=== PATIENT | female | born 1945 | race Caucasian/White ===

== ENCOUNTER → 2024-02-16 | Outpatient (CLI) | payer OTHER, SELFPAY ==
--- NOTE | 2024-02-16 12:30 | XR_ITS ---
Examination: Thyroid sonography complete TECHNIQUE: Multiple high resolution grayscale sonographic images thyroid lobes are carful analysis Exam date and time: February 16, 2024 1307 hours INDICATIONS: Graves' disease diagnosis 20 years ago FINDINGS: Right thyroid 5.7 x 1.5 x 1.9 cm Multiple thyroid nodules, the largest in the mid lobe 9 x 6 x 6 mm lower lobe 3.4 x 1.4 x 2.5 cm Isthmus nodule 13 x 6 x 13 mm Left thyroid 7.7 x 2.8 x 4.3 cm Midpole vascular nodule with heterogeneous echogenicity 4.7 x 2.4 x 3.7 cm IMPRESSION: Thyromegaly Multiple thyroid nodules as above Recommend ultrasound-guided fine-needle aspiration of the large inferior nodule right thyroid lobe and large mid to lower pole nodule left thyroid lobe
== END | disposition home or self-care (01) ==
PROVIDERS: PCP Physician Assistant; Referring Provider Nurse Practitioner Family; Visit Provider Nurse Practitioner Family
DX: E01.0 Iodine-deficiency related diffuse (endemic) goiter (principal); C44.329 Squamous cell carcinoma of skin of other parts of face; C50.912 Malignant neoplasm of unspecified site of left female breast; C50.411 Malignant neoplasm of upper-outer quadrant of right female breast
CPT/HCPCS: 76536

== ENCOUNTER 2024-02-22 13:22 | Outpatient (RCR) | payer OTHER, SELFPAY ==
--- NOTE | 2024-02-23 06:41 | CTCFLWUP_ITS ---
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 Left breast cancer (1997) Uterine cancer (2015) REASON FOR TODAY?S VISIT: Follow-up for routine HISTORY OF PRESENT ILLNESS: Ms. West is here at [facility]. Patient is accompanied by daughter. MRI of orbits face neck with and without contrast showed no abnormal enha ncing right or left orbital mass, 12/25/2023. MRI was ordered due to PET/CT recommendation from 2023. Labs from 12/11/2023 show TSH 1.21, T40.87, thyroglobulin 246.9. Patient currently taking methi mazole for Graves' disease. Patient reports feeling well overall. Patient denies any concerns or co mplaints. Denies dysphagia. Patient denies cough, denies chest pain, denies any pain in the right eye socket. Denies any abdominal pain or leg cramps. Has good appetite and good energy levels. Denies any weight loss. Denies any fevers or night sweats. Patient ambulating without assistance. ONCOLOGICAL HISTORY: Gemma West is a 78-year-old ENG speaking female with following oncolo gy history. 1997: Patient had left breast cancer. She had lumpectomy followed by radiation therapy. She was jessica ated with 5 years of tamoxifen at [facility] in [place]. Treated with adjuvant tamoxifen for 5 year s. 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 2016: Patient developed uterine cancer. She had hysterectomy followed by radiation therapy in [place]. 2018: Patient developed squamous cell carcinoma of the right lateral orbital region which was resecte d by Dr. Nathan in [place]. 2019: Patient had another surgery for recurrence of the squamous cell carcinoma of the right lateral orbital region by Dr. Darby of [place]. 07/29/2019: Patient had local recurrence in the right orbit. She had right lateral orbitotomy with rem oval of the squamous cell recurrence. Right conjunctival tumor excision with map biopsies. Harvested labial mucosal mercedes t. Right ocular surface reconstruction, conjunctivoplasty, buccal graft. Right temporal tarsorrhaphy with bandage co ntact lens. Surgical pathology specimen showed the following. According to . Brett Dr. Darby did not recommend any radiation therapy to the right lateral orb it. 08/17/2019: Patient was seen by radiation oncologist Dr. Crenshaw here at the [facility]. 10/18/2019: PET CT scan? 11/11/2019: Ultrasound of soft tissue of the face and neck? 11/11/2019: Right breast ultrasound? 11/14/2019: CT scan of the chest without contrast? 12/01/2019: CT-guided biopsy of the right lung? 12/06/2019: Ultrasound-guided biopsy of the right breast? 12/29/2019: Ultrasound-guided biopsy of the left thyroid nodule? 02/09/2020: MRI of the orbits face and neck with and without contrast? 03/05/2020: Right breast lumpectomy and sentinel node biopsy? 03/09/2020: Repeat surgery for positive margins? 04/26/2020: 06/04/2020?08/06/2020: Patient received 4 cycles of TC chemotherapy in the adjuvant setting. 08/30/2020: Patient is started on tamoxifen 20 mg p.o. daily. Bone density test is requested. 09/26/2020 - 11/14/2020: Patient received 6300 cGy radiation therapy to the right breast. 04/03/2021: MRI brain without contrast 05/21/2021: CT scan of the chest without contrast 07/18/2021: CT-guided biopsy of the left upper lobe lung lesion? 05/21/2023: Bilateral breast mammogram screening 08/18/2023: Bilateral breast ultrasound 08/25/2023: CT chest without contrast 08/31/2023: MRI brain with contrast 10/15/2023: PET/CT IMPRESSION: Recommend MRI soft tissue neck pre and post contrast follow-up to assess weakly hypermetabolic soft tissue posterior to the right hyoid bone and in hypermetabolic area at or near the right thyroid lobe, 15 mm The high-resolution CT chest without contrast August 25, 2023 better demonstrates metastatic pulmonary nodules, including a 18 mm nodule spiculated margins left upper lobe 12/11/2023: TSH 1.21, T40.87, thyroglobulin 246.9 12/25/2023: MRI orbits face neck with and without contrast-no abnormal enhancing right or left orbital mass PAST MEDICAL HISTORY: Left breast cancer - 1997 Dudley cell right face - 2013 Uterine - 2014 Squamous cell carcinoma right eye - 2013 HTN High Cholesterol Hyperthyroid PAST SURGICAL HISTORY: Left breast lumpectomy - 1997 Right eye surgery - Hysterectomy -2014 MEDICATIONS: methIMAzole hydrochlorothiazide citalopram Citracal plus D [calcium citrate/cholecalciferol (vitamin d3)] tamoxifen gabapentin Medications last reconciled on 01/07/2024 ALLERGIES: amoxicillin REVIEW OF SYSTEMS Neurological: No headache, seizures or blurring of vision. Gastrointestinal: No nausea, vomiting, diarrhea or constipation. Cardiovascular: No palpitations or angina pains. Respiratory: No cough, chest pain or shortness of breath. VITAL SIGNS: Date Time PHYSICAL EXAMINATION: No signs of recurrence of malignancy in the right orbital area. Oral cavity: No Lesions. Neck: Supple, no adenopathy. Chest is clear to auscultation. No wheezes or rales audible. CVS: Rhythm regular, no murmurs. Abdomen is soft. No hepatosplenomegaly. Extremities: No pedal edema. No cyanosis. LABORATORY DATA: ASSESSMENT AND PLAN: #1. 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 MRI head brain with contrast, shows no abnormal lesions, (08/31/2023). MRI of orbits face and neck with and without contrast showed no abnormal enhancing right or left orbi renee mass, 12/25/2023. Advised to continue follow-up with his Mohs surgeon #2. 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 S/p 4 cycles adjuvant TC chemotherapy and adjuvant r adiation therapy. Oncotype DX recurrence score 29 with a distant recurrence risk at 9 years of 18%. The absolute chemo therapy benefit is more than 15%. Bilateral breast mammogram, (05/21/2023), benign, recommending baseline bilateral breast ultrasound. Baseline bilateral breast ultrasound, negative study, (08/18/2023). Continue tamoxifen, started (08/30/2020-August 2024) #3. History of uterine cancer (2015) Status post hysterectomy followed by radiation therapy. No clinical evidence of recurrence. #4. Hyperthyroidism Left thyroid nodule biopsy benign, 01/05/2020. Taking methimazole for Graves' disease, will bring medication bottle to next visit, does not remember dosage, managed by PCP, Dr. June. Labs from 12/11/2023 TSH 1.21 T40.87, thyroglobulin antibody <1, thyroglobulin 246.9. Ultrasound of neck. TSH T4 thyroglobulin and thyroglobulin antibody prior to next follow-up appointment. #5. Pulmonary nodules. CT scan of chest without contrast 08/25/2023 showed multiple additional pulmonary nodules, 6-month foll ow-up CT chest without contrast recommended. Has an existing order for 12/2023. CT scan of chest without contrast (07/24/2022) showed stable pulmonary nodules, no new pulmonary nodule s. CT-guided biopsy of the left upper lobe lung lesion is negative for malignancy (07/18/2021). #6. Osteopenia, 06/09/2022. Continue Citracal twice a day. #7 Left breast cancer (1997) no evidence of recurrence Return to clinic in 1 month for follow up visit, to review US results, CT results and lab results. Electronically signed by Dr Tao electronically Signed by: {Object.Sanct_ID*PnP.NameFL}, {Object.Sanct_ID*PnP.Suffix} on {Object.Sanct _Date} at {Object.Sanct_Time} Electronically Signed by: {Object.Sanct_ID2*PnP.NameFL}, {Object.Sanct_ID2*PnP.Suffix} on {Object.Santiago ct_Date2@d01b} at {Object.Sanct_Time2@t3b} cc: Alejandro June, Referring: Reno Moya This document was completed utilizing speech recognition software. Grammatical errors, random word in sertions, pronoun errors, and incomplete sentences are an occasional consequence of this system due t o software limitations, ambient noise, and hardware issues. Any formal questions or concerns about th e content, text or information contained within the body of this dictation should be directly address ed to the provider for clarification. Patient: GEMMA WEST : 1945 MR#: [id number] FOLLOW UP NOTE Page 17 of 17
== END 2024-03-22 23:59 | disposition home or self-care (01) ==
LOC: SCTC 13:22
PROVIDERS: PCP Family Medicine; Referring Provider Family Medicine; Visit Provider Internal Medicine Hematology & Oncology
DX: C50.411 Malignant neoplasm of upper-outer quadrant of right female breast (principal); C44.329 Squamous cell carcinoma of skin of other parts of face; Z17.0 Estrogen receptor positive status [ER+]; Z17.21 Progesterone receptor positive status; Z17.32 Human epidermal growth factor receptor 2 negative status; Z90.11 Acquired absence of right breast and nipple; Z92.21 Personal history of antineoplastic chemotherapy; Z92.3 Personal history of irradiation; Z79.810 Long term (current) use of selective estrogen receptor modulators (SERMs); Z85.42 Personal history of malignant neoplasm of other parts of uterus; Z90.710 Acquired absence of both cervix and uterus
CPT/HCPCS: 99212; G0463

== ENCOUNTER → 2025-02-28 | Outpatient (CLI) | payer OTHER, SELFPAY ==
--- NOTE | 2025-02-28 10:00 | XR_ITS ---
Examination: CT brain head without contrast. 2-D sagittal coronal reconstructions Date and time of exam: February 28, 2025, 10:10 a.m. INDICATIONS: Syncopal episode with collapse 2 months ago CTDI: vol (mGy): 42 DLP: (mGycm): 940 Technique: Multiple CT axial sections of the brain have been obtained, 5 mm slice thickness. Contrast has not been administered. 2-D sagittal, coronal reconstructions have been obtained Low dose protocols were performed. One or more of the following dose reduction techniques were used; automated exposure control, adjustment of the mA and/or KV according to patient size, use of iterative reconstruction technique. Findings: Mild ventricular enlargement. Intra-axial or extra-axial hemorrhage density is not seen. No mass effect or midline shift Basal cisterns are not remarkable. Fourth ventricle is midline. Cranial vault intact. Impression: Negative for acute hemorrhage, mass effect or midline shift Given the patient's presentation, consider brain MRI MRA without contrast follow-up
== END | disposition home or self-care (01) ==
LOC: CCTX 09:51
PROVIDERS: PCP Family Medicine; Referring Provider Family Medicine; Visit Provider Family Medicine
DX: R55 Syncope and collapse (principal)
CPT/HCPCS: 70450